=== PATIENT | male | born 1950 | race Caucasian/White ===

== ENCOUNTER → 2020-11-28 11:56 | Outpatient (CLI) | payer MEDICARE, OTHER, SELFPAY ==
--- NOTE | 2020-11-28 12:05 | FL_ITS ---
PROCEDURE: FL BARIUM SWALLOW CLINICAL INDICATION: ESOPHAGEAL ABNOMALITY COMPARISON: No exams were available for comparison FINDINGS: No evidence of mass or esophageal obstruction. There is a small sliding hiatal hernia. No constricting Schatzki's ring is apparent. There is normal peristalsis. No mucosal abnormalities identified. Fluoroscopy time: 55 seconds IMPRESSION: Small sliding hiatal hernia otherwise negative barium swallow Dictated by: Benjamin Doyle MD 11/28/2020 13:18 Benjamin Doyle MD in [facility] 11/28/2020 13:18
== END ==
PROVIDERS: PCP Family Medicine; Visit Provider Family Medicine
DX: K22.9 Disease of esophagus, unspecified (principal)
CPT/HCPCS: 74220